=== PATIENT | male | born 1975 | race Caucasian/White ===

== ENCOUNTER 2016-05-13 11:37 | Day surgery (SDC) | payer OTHER ==
[2016-05-12 12:50] VITALS: BMI 32.1
[2016-05-13] MEDS ORDERED: LIDOCAINE HCL/PF 2% SDV 5ML VIAL ONE (15:38)
[2016-05-13] MEDS ORDERED: PROPOFOL 20 ML ONE ×2 (15:39→16:04)
[2016-05-13] MEDS ORDERED: MIDAZOLAM HCL 2 MG/2 ML SINGLE DOSE VIAL ONE (15:39)
[2016-05-13] MEDS ORDERED: EPINEPHrine 1:1,000 1 MG/1 ML - 30ML VIAL (INJECTION) ONE (15:49)
[2016-05-13] MEDS ORDERED: ONDANSETRON 4 MG/2 ML VIAL ONE (16:16)
[2016-05-13] MEDS ORDERED: DEXAMETHASONE SOD PHOSPHATE 4 MG/1 ML VIAL ONE (16:16)
[2016-05-13] MEDS ORDERED: ceFAZolin SODIUM 1 GM VIAL ONE (16:16)
[2016-05-13] MEDS ORDERED: HYDROmorphone HCL/PF 1 MG/ML VIAL (FOR PYXIS CHARGING ONLY) ONE ×2 (16:34→17:27)
[2016-05-13] MEDS ORDERED: BUPIVACAINE HCL/EPINEPHRINE/PF 30 ML VIAL IJ ONE (16:43)
[2016-05-13] MEDS ORDERED: BUPIVACAINE 0.25% /EPI 1:200,000 10 ML VIAL NR ONE (17:24)
[2016-05-13] MEDS ORDERED: ONDANSETRON 4 MG/2 ML VIAL IVPUSH PRN (17:58)
[2016-05-13] MEDS ORDERED: oxyCODONE HCL 5 MG TABLET PO PRN (17:58)
[2016-05-13] MEDS ORDERED: LACTATED RINGERS SOLUTION 1,000 ML IV SCH (18:00)
[2016-05-13] MEDS: HYDROmorphone HCL CARPU-JECT 1 MG/1 ML DISP.SYRIN IVPUSH PRN ×4 (18:01→18:45)
[2016-05-13] MEDS ORDERED: KETOROLAC TROMETHAMINE 30 MG/1 ML VIAL IVPUSH ONE ×2 (18:25→19:39)
[2016-05-13] MEDS ORDERED: PROMETHAZINE HCL 25 MG/1 ML VIAL IVPUSH ONE ×2 (19:00→19:40)
[2016-05-13 20:54] VITALS: BP 137/84; PULSE 84; TEMP 97.4
[2016-05-13] MEDS ORDERED: HYDROmorphone HCL CARPU-JECT 1 MG/1 ML DISP.SYRIN ONE (21:05)
[2016-05-13] MEDS ORDERED: KETOROLAC TROMETHAMINE 30 MG/1 ML VIAL ONE (21:06)
[2016-05-13] MEDS ORDERED: oxyCODONE HCL 5 MG TABLET ONE (21:06)
[2016-05-13] MEDS ORDERED: PROMETHAZINE HCL 25 MG/1 ML VIAL ONE (21:06)
--- NOTE | 2016-05-14 19:14 | OP ---
DATE OF OPERATION: 05/13/2016 PREOPERATIVE DIAGNOSIS: Right knee trochlear cartilage lesions. POSTOPERATIVE DIAGNOSIS: Right knee trochlear cartilage lesions and medial femoral condyle cartilage lesion. SURGEON: Joe Ford MD HVAC ENGINEER: Mari Laci, whose skillful assistance was necessary for the safe and timely performance of this procedure. Ms. Aguero was able to provide retraction, assist in driving the arthroscopic camera, assist in patient and positioning. TOURNIQUET TIME: An hour and 20 minutes. POSTOPERATIVE CONDITION: Stable. COMPLICATIONS: None. INDICATIONS: This is a pleasant gentleman suffering from anterior right knee pain. He previously suffered from similar knee pain on the left and underwent the same type of procedure. He was doing well with this knee, and therefore, he elected to proceed with operative management on the right. Nonoperative management was discussed as well. We discussed surgical risks including bleeding, infection, neurovascular injury, need for further surgery, postoperative pain and stiffness, progression of osteoarthritis or cartilage lesions within the knee. We reviewed medical risks such as heart attack, stroke, DVT, PE and . The patient voiced understanding and elected to proceed. DESCRIPTION OF PROCEDURE: The patient was brought to the operating room where general anesthesia was administered. The right lower extremity was then prepped and draped in the usual sterile fashion. Preoperative dose of antibiotics was given and the usual timeout procedure was performed. At this point, the right lower extremity was exsanguinated, tourniquet was inflated to 250 mmHg. Standard anterolateral viewing portal was incised with an 11 blade after infusing subcutaneously with 0.25% Marcaine at the portal sites. The arthroscope was then passed into the knee. Examination of the superior patellofemoral joint demonstrated no cartilage lesions. Passing the arthroscope down demonstrated a cartilage fissure and apparent full thickness lesion on the lateral trochlear groove. The arthroscope was then passed into the notch. Here the ACL was visualized to be intact. The arthroscope was passed medially. Here, on the medial femoral condyle, there was streak wear with partial thickness cartilage loss and fissuring. A medial portal was now established under spinal needle localization. Given the diffuse nature of the medial disease, this was debrided using the shaver. In addition, at the fissured areas, a 1.6-mm K-wire was used to create trepanation in a microfracture technique. The arthroscope was now passed back toward the trochlear lesion. A probe was passed under and the lesion was seen to be far larger than what was initially apparent. The unstable cartilage was debrided using a curette as well as a shaver down to a stable wall base. The curette was used to decorticate the bone in this region. The 1.6 K-wire was used to make multiple trepanations with marrow seen to be exiting from the holes. The decision at this point was made that this needed to be open, that repairing this using arthroscopic approach would not be satisfactory. The lateral portal was now extended more proximally. Dissection was carried down to the retinaculum, which was then split in line with the limb. Capsule was split as well. The site was now exposed. The sucker was used to dry the area. The BioCartilage and PRP combination was now placed into the defect, which was approximately 1.2 cm wide x 1.8 cm long. The area was filled with the BioCartilage. It was then sealed off using Tisseel. This was then allowed to dry for 10 minutes. The deep tissues were now closed back including the capsular retinaculum using 0 Vicryl. The subcutaneous tissue was approximated using 3-0 Vicryl. The skin was closed using 3-0 nylon. Marcaine was injected just proximal to the knee over the femoral area but outside of the capsule. The patient was wrapped in sterile dressings. He was placed in a knee immobilizer. He was extubated and transferred to the recovery room in stable condition. Lee FREEMAN/[id number]
== END 2016-05-13 20:25 | disposition home or self-care (01) ==
LOC: FASU 11:37
PROVIDERS: ATTEND Orthopaedic Surgery Sports Medicine
PROC: 0SQC0ZZ Repair Right Knee Joint, Open Approach (ICD-10-PCS; 2016-05-13)
PROC: 3E0V3GC Introduction of Other Therapeutic Substance into Bones, Percutaneous Approach (ICD-10-PCS; 2016-05-13)
PROC: 0SBC4ZZ Excision of Right Knee Joint, Percutaneous Endoscopic Approach (ICD-10-PCS; principal; 2016-05-13 13:00)
DX: M94.8X6 Other specified disorders of cartilage, lower leg (principal); Z53.33 Arthroscopic surgical procedure converted to open procedure
CPT/HCPCS: 0232T; 27599; 29877; 94760